=== PATIENT | female | born 1980 | race Caucasian/White ===

== ENCOUNTER 2022-03-19 23:55 | Emergency (ER) | payer MEDICARE, MEDICAID, SELFPAY ==
[2022-03-20 00:06] VITALS: BP 111/91; PULSE 99; RESP 16; TEMP 36.3; O2SAT 96
[2022-03-20 00:10] VITALS: RESP 16
--- NOTE | 2022-03-20 00:27 | ED.GENADUL_ITS ---
Discharge Plan Disposition Patient Disposition: HOME Condition: Stable Discharge Details Clinical Impression: Anxiety ED Provider: Sanjeev Marshall Home Meds and New Rx's Prescriptions: New lorazepam 1 mg tablet 1 mg PO TID PRNQty: 9 0RF Continued levothyroxine 25 mcg Tablet 25 mcg PO DAILY pravastatin 10 mg Tablet 10 mg PO DAILY Trulicity 1.5 mg/0.5 mL Pen Injector 1.5 mg SUBCUT .WEEKLY Discharge Instructions Instructions: Anxiety (ED) Additional Instructions: follow up with your primary care provider as soon as possible if you feel more ill, have worsening symptoms or difficulty breathing return to the emergency department Medical Decision Making 42 yo female with hx of chronic anxiety comes in with her family member with anxiety. She was kicked out of her sister's house in [place] a few months ago so he took her in and they have been living at a motel in the area. Her anxiety has increased since then and she has a fear of her family member leaving her and has history of severe seperation anxiety. She had an episode tonight where she was anxious and was flopping around on the ground per the family member. No depression or si. She arrives calm and cooperative, denies severe anxiety now but is worred about being left alone. She has no signs of trauma, no focal neuro deficits normal gait, clear speech, caox4. Given this is a chronic issue do not feel acute workup indicated and do not feel she requires emergent mental health evaluation given no si/hi or paranoia. Her and family member are appropriate and do not suspect any type of abuse. Will provide short course of ativan. Offered nkhs refusal but they have not found them helpful in the past and do not want to follow up with them and will f/u with her pcp, return precautions given Differential Diagnosis Differential Diagnosis: anxiety, social anxiety, seperation anxiety HPI General Mode of arrival: ambulatory . Date/Time Provider Initiated Documentation: 03/20/22 00:09 . Limitations to Documentation: no limitations . Information obtained by: patient . History of Present Illness 42 year old F presents to the emergency department with the chief complaint of anxiety, described as moderate, Patient started experiencing this year(s) (20) and it has been intermittent. No relieving factors improve symptom(s), No exacerbating factors reported . Patient notes no other symptoms.. Patient did receive the following treatments prior to arrival, none Related Data Home Medications Medication Instructions Recorded Confirmed dulaglutide 1.5 mg/0.5 mL 1.5 mg subcut .WEEKLY 03/20/22 03/20/22 subcutaneous pen injector (Trulicity) levothyroxine 25 mcg tablet 25 mcg PO DAILY 03/20/22 03/20/22 lorazepam 1 mg tablet 1 mg PO TID PRN #9 tabs 03/20/22 pravastatin 10 mg tablet 10 mg PO DAILY 03/20/22 03/20/22 Previous Rx's Medication Instructions Recorded lorazepam 1 mg tablet 1 mg PO TID PRN #9 tabs 03/20/22 Allergies Allergy/AdvReac Type Severity Reaction Status Date / Time metformin Allergy Unverified 03/20/22 00:13 Penicillins Allergy Unverified 03/20/22 00:13 perfumes AdvReac Uncoded 03/20/22 00:13 General Stated Complaint: Anxiety ULISES: 3 Review of Systems All systems reviewed & are unremarkable except as noted in HPI and below Constitutional Constitutional: Denies chills, Denies fever(s) and Denies weakness Cardiovascular Cardiovascular: Denies chest pain and Denies dyspnea Respiratory Respiratory: Denies cough and Denies dyspnea Gastrointestinal Gastrointestinal: Denies abdominal pain, Denies nausea and Denies vomiting Neurologic Neurologic: Denies weakness Psychiatric Psychiatric: Denies depression PFSH All Active Problems (Updated 03/20/22 @ 00:27 by Sanjeev Marshall MD) Anxiety (Chronic) Social History Smoking/Tobacco Use Status: Former Tobacco Use Smoking risk assessment performed?: Yes Alcohol Intake: never Substance use type: does not use Exam Const General: no acute distress Orientation: alert HENAZ Head: normal to inspection Ears: external ears normal General nose exam: external nose normal Mouth: moist mucous membranes Eyes General: appearance normal, both eyes and all related structures Neck Neck: normal visual inspection Resp Effort & Inspection: normal respiratory effort and able to speak in complete sentences Cardio Rate: regular rate Skin General skin exam: no rashes or lesions noted Neuro General: patient alert and patient oriented x3 Extrem General: normal to inspection Psych Appearance: well kempt Course Vital Signs Vital signs: Vital Signs Temperature 36.3 C L 03/20/22 00:06 Pulse 99 H 03/20/22 00:06 Respiratory Rate 16 03/20/22 00:06 Blood Pressure 111/91 H 03/20/22 00:06 Pulse Oximetry 96 03/20/22 00:06 Temperature 36.3 C L 03/20/22 00:06 Temperature Source Temporal Artery Scan 03/20/22 00:06 Pulse 99 H 03/20/22 00:06 Respiratory Rate 16 03/20/22 00:06 Respiratory Effort 03/20/22 00:06 Blood Pressure 111/91 H 03/20/22 00:06 Blood Pressure Position Sitting 03/20/22 00:06 Pulse Oximetry 96 03/20/22 00:06 Oxygen Delivery Method Room Air 03/20/22 00:06 Oxygen Flow Rate 0 03/20/22 00:06 Pain Level 5 03/20/22 00:06 Comment 03/20/22 00:06
[2022-03-20] MEDS: LORazepam 1 MG TAB 2 MG PO (00:40)
[2022-03-20] MEDS: LORazepam 1 MG TAB PO (00:40)
== END 2022-03-20 00:44 | disposition home or self-care (01) ==
PROVIDERS: Emergency Provider Emergency Medicine
DX: F41.9 Anxiety disorder, unspecified (principal); Z87.891 Personal history of nicotine dependence
CPT/HCPCS: 99283; 99284

== ENCOUNTER 2022-06-25 23:06 | Emergency (ER) | payer MEDICARE, MEDICAID, SELFPAY ==
[2022-06-25 23:11] VITALS: BP 116/79; PULSE 104; RESP 16; TEMP 37; O2SAT 98
--- NOTE | 2022-06-25 23:41 | ED.GENADUL_ITS ---
Discharge Plan Disposition Patient Disposition: HOME Condition: Good Discharge Details Clinical Impression: Lesion of tongue Primary Care Provider: None,None ED Provider: Marciano Pathak Home Meds and New Rx's Prescriptions: New nystatin 100,000 unit/mL suspension 1 ml PO DAILY Qty: 200 0RF Rx Instructions: swish and swallow No Action levothyroxine 25 mcg Tablet 25 mcg PO DAILY pravastatin 10 mg Tablet 10 mg PO DAILY Trulicity 1.5 mg/0.5 mL Pen Injector 1.5 mg SUBCUT .WEEKLY lorazepam 1 mg tablet 1 mg PO TID PRNQty: 9 0RF cetirizine 10 mg tablet 10 mg PO DAILY Label Comments: TAKE ONE TABLET BY MOUTH EVERY DAY glimepiride 2 mg tablet 2 mg PO DAILY Tradjenta 5 mg tablet 5 mg PO DAILY Label Comments: TAKE ONE TABLET BY MOUTH EVERY DAY Trulicity 3 mg/0.5 mL pen injector SUBCUT Discharge Instructions Instructions: Oral Candidiasis (ED) Additional Instructions: At this time the lesions on your tongue appear to be similar to thrush. Please take the oral antifungal treatment as directed. It is been sent to your pharmacy on file. You can take Tylenol and Motrin as needed for pain. There is a small chance that this could be related to something more concerning. If you have no improvement of your symptoms over the next 1 to 2 weeks with the antifungal treatment, you will need to follow-up with an ENT specialist for potential biopsy. If you notice any worsening of your symptoms, or any new symptoms such as vomiting, diarrhea, fever, chills, shortness of breath, chest pain, numbness, weakness, or fainting , please return immediately to the emergency department for reevaluation. Please follow up with your primary care provider as soon as possible for reassessment and reevaluation. As always, it was a pleasure participating in your medical care today. Referrals: Oswaldo Chow MD [ [facility] STAFF PHYSICIAN] - Medical Decision Making 42-year-old female with a past medical history of type 2 diabetes and high cholesterol and hypothyroidism who presents today for evaluation of tongue lesions. Patient states that she noticed tonight that she had some different lesions on her tongue, as well as some mild pain on the left side of the tongue. She denies eating anything atypical. She denies any change in medications. She denies any history of HIV or IV drug use. She has had thrush in the past but states that this feels somewhat different. She does not smoke, she does not chew tobacco. No history of oral cancer before or in her family. No other complaints at this time Physical exam demonstrates some atypical well-defined serpiginous like lesions at the center of the tongue. They are not able to be scraped off. There is no bleeding. No vesicles. Differential is highest for geographic tongue, secondary differential includes slightly atypical yeast infection. We will treat with oral nystatin. Less likely there is leukoplakia. We will recommend the patient to reevaluate her symptoms after 1 to 2 weeks of nystatin therapy. If she has no improvement ENT follow-up is recommended. I have extensively re viewed the treatment plan and discharge instructions with the patient. I have addressed all patient concerns at this time. The patient was made aware of what symptoms to monitor for that would warrant a return to the emergency department. Discussed the plan with the patient, they demonstrate verbal understanding and agreement with our assessment and plan at this time. The documentation in this chart was dictated using [employer] dictation software. Please excuse any dictation errors. HPI General Date/Time Provider Initiated Documentation: 06/25/22 23:29 . HPI Narrative: 42-year-old female with a past medical history of type 2 diabetes and high cholesterol and hypothyroidism who presents today for evaluation of tongue lesions. Patient states that she noticed tonight that she had some different lesions on her tongue, as well as some mild pain on the left side of the tongue. She denies eating anything atypical. She denies any change in medications. She denies any history of HIV or IV drug use. She has had thrush in the past but states that this feels somewhat different. She does not smoke, she does not chew tobacco. No history of oral cancer before or in her family. No other complaints at this time Related Data Home Medications Medication Instructions Recorded Confirmed dulaglutide 1.5 mg/0.5 mL 1.5 mg subcut .WEEKLY 03/20/22 06/25/22 subcutaneous pen injector (Trulicity) levothyroxine 25 mcg tablet 25 mcg PO DAILY 03/20/22 06/25/22 lorazepam 1 mg tablet 1 mg PO TID PRN #9 tabs 03/20/22 06/25/22 pravastatin 10 mg tablet 10 mg PO DAILY 03/20/22 06/25/22 cetirizine 10 mg tablet 10 mg PO DAILY 06/25/22 06/25/22 dulaglutide 3 mg/0.5 mL device subcut 06/25/22 06/25/22 subcutaneous pen injector (Trulicity) glimepiride 2 mg tablet 2 mg PO DAILY 06/25/22 06/25/22 linagliptin 5 mg tablet (Tradjenta) 5 mg PO DAILY 06/25/22 06/25/22 nystatin 100,000 unit/mL oral 1 ml PO DAILY #200 mL 06/25/22 suspension Previous Rx's Medication Instructions Recorded lorazepam 1 mg tablet 1 mg PO TID PRN #9 tabs 03/20/22 nystatin 100,000 unit/mL oral 1 ml PO DAILY #200 mL 06/25/22 suspension Allergies Allergy/AdvReac Type Severity Reaction Status Date / Time metformin Allergy Unverified 06/25/22 23:15 Penicillins Allergy Unverified 06/25/22 23:15 perfumes AdvReac Uncoded 06/25/22 23:15 General Stated Complaint: DentalOral ULISES: 4 Review of Systems All systems reviewed & are unremarkable except as noted in HPI and below PFSH All Active Problems Lesion of tongue (Acute) Social History Smoking/Tobacco Use Status: Former Tobacco Use Smoking risk assessment performed?: Yes Alcohol Intake: never Substance use type: does not use Exam Narrative Exam Narrative: 1.Const: Well-nourished, Well-developed, appearing stated age 2.Eyes: PERRL, no conjunctival injection, and symmetrical lids. 3.ENT: Atraumatic external nose and ears. Moist MM. Neck: Symmetric, trachea midline, No thyromegaly. Mouth demonstrates no atypical lesions on the gingiva or mucosal membranes. Tongue demonstrates slightly atypical appearance, it looks somewhat geographic with some central lesions which appear to demonstrate some symmetry. The lesions were not able to be scraped off. They have a well- defined border. Largest lesion is in the middle of the tongue and is about 1 cm x 0.5 cm in diameter. Somewhat more proximally is a second lesion about the same size but it appears to be longer rather than more wide. No other significant lesion 4.CVS: +S1/S2, No murmurs or gallops. Peripheral pulses 2+ and equal in all ex tremities. Brisk capillary refill in all extremities. 5.RESP: Unlabored respiratory effort. Clear to auscultation bilaterally. No wheezes rales or rhonchi 6.GI: Soft, Nontender/Nondistended, No hepatosplenomegaly. No guarding or rebound. 7.MSK: Normocephalic/Atraumatic, Extremities w/o deformity or ttp No cyanosis or clubbing, Normal movement of all extremities 8.Skin: Warm, Dry. No rashes or lesions. 9.Neuro: contract technical writer II-XII grossly intact. Sensation grossly intact, no focal neurologic deficits. 10.Psych: (AAO) x3. Appropriate mood and affect Course Vital Signs Vital signs: Vital Signs Temperature 37 C 06/25/22 23:11 Pulse 104 H 06/25/22 23:11 Respiratory Rate 16 06/25/22 23:11 Blood Pressure 116/79 06/25/22 23:11 Pulse Oximetry 98 06/25/22 23:11 Temperature 37 C 06/25/22 23:11 Temperature Source Temporal Artery Scan 06/25/22 23:11 Pulse 104 H 06/25/22 23:11 Respiratory Rate 16 06/25/22 23:11 Respiratory Effort 06/25/22 23:14 Blood Pressure 116/79 06/25/22 23:11 Blood Pressure Position Sitting 06/25/22 23:11 Pulse Oximetry 98 06/25/22 23:11 Oxygen Delivery Method Room Air 06/25/22 23:11 Oxygen Flow Rate 0 06/25/22 23:11 Pain Level 8 06/25/22 23:11
--- NOTE | 2022-06-26 11:11 | NUR.NOTE ---
Nursing Note: Accessed pt chart to review prescription with Dr Gurdeep Paulino for directions.
== END 2022-06-26 00:05 | disposition home or self-care (01) ==
PROVIDERS: Emergency Provider Student in an Organized Health Care Education/Training Program
DX: K13.79 Other lesions of oral mucosa (principal)
CPT/HCPCS: 99283